=== PATIENT | female | born 1995 | race African-American/Black ===

== ENCOUNTER 2017-01-20 19:11 | Emergency (ER) | payer MEDICAID, OTHER ==
[~2017-01-20] VITALS: Ht 167.6 cm; Wt 64.0 kg
[2017-01-20] MEDS ORDERED: KETOROLAC 30MG/ML VIAL IM STA (23:16)
[2017-01-20] MEDS ORDERED: ONDANSETRON 4MG ODT PO STA (23:16)
[2017-01-21] MEDS ORDERED: TETANUS, DIPHTHERIA, PERTUSSIS VAC/PF 0.5ML (>7YR OLD) IM ONE (01:15)
[2017-01-21 01:53] VITALS: BP 122/74
== END 2017-01-21 01:58 | disposition home or self-care (01) ==
LOC: ER 19:11
DX: M54.5 Low back pain (principal); M54.2 Cervicalgia
CPT/HCPCS: 72040; 72100; 81025; 90471; 90715; 96372; 99284; J1885; Q0162